=== PATIENT | male | born 1990 | race Two or more races ===

== ENCOUNTER 2016-12-19 18:04 | Emergency (ER) | payer SELFPAY ==
[~2016-12-19] VITALS: Ht 165.1 cm; Wt 77.1 kg
[2016-12-19 18:34] VITALS: BP 134/86
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
== END 2016-12-19 18:42 | disposition home or self-care (01) ==
LOC: ER 18:04
DX: Z02.89 Encounter for other administrative examinations (principal); F10.20 Alcohol dependence, uncomplicated; F14.10 Cocaine abuse, uncomplicated; F12.10 Cannabis abuse, uncomplicated; F15.10 Other stimulant abuse, uncomplicated
CPT/HCPCS: 99281

== ENCOUNTER 2018-05-13 10:47 | Emergency (ER) | payer SELFPAY ==
[~2018-05-13] VITALS: Ht 165.1 cm; Wt 72.6 kg
[2018-05-13 11:00] VITALS: BP 123/59
[2018-05-13] MEDS ORDERED: CEPH-264 PO (11:24)
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
[2018-05-13] MEDS ORDERED: BACITRACIN TOPICAL OINT 14GM TUBE. TP ONE (11:30)
== END 2018-05-13 11:50 | disposition home or self-care (01) ==
LOC: ER 10:47
DX: L02.415 Cutaneous abscess of right lower limb (principal); F41.9 Anxiety disorder, unspecified; F32.9 Major depressive disorder, single episode, unspecified; F10.20 Alcohol dependence, uncomplicated; Y90.9 Presence of alcohol in blood, level not specified
CPT/HCPCS: 99283